=== PATIENT | female | born 2000 | race African-American/Black ===

== ENCOUNTER 2022-11-06 00:17 | Emergency (ER) | payer BC ==
[~2022-11-06] VITALS: Ht 160 cm; Wt 73.5 kg
[2022-11-06 00:31] VITALS: BP_SYST 114; PULSE 101; RESP 19; TEMP 98; O2SAT 96
[2022-11-06 00:49] VITALS: BP_SYST 122; PULSE 88; RESP 16; TEMP 98.4; O2SAT 98
== END 2022-11-06 00:49 | disposition home or self-care (01) ==
LOC: SED 00:17
DX: G40.909 Epilepsy, unspecified, not intractable, without status epilepticus (principal); Z79.899 Other long term (current) drug therapy
CPT/HCPCS: 99283